=== PATIENT | female | born 1950 | race American Indian/Alaskan Native ===

== ENCOUNTER 2019-05-13 11:11 | Outpatient (CLI) | payer MEDICARE ==
--- NOTE | 2019-05-13 16:07 | Mammography Report ---
DIGITAL SCREENING MAMMOGRAM WITH CAD, 05/13/2019 INDICATION: Routine screening mammography. TECHNIQUE: Digital bilateral 2D mammography was obtained in the craniocaudal and mediolateral obliq ue projections. This examination was interpreted with the benefit of Computer-Aided Detection analysi s. COMPARISON: 11/27/2012 FINDINGS: Breast Density: The breasts are almost entirely fatty. Right retroareolar duct ectasia has increased compared to the previous exam and requires additional i maging. No architectural distortion or suspicious calcifications of the right breast. There is no maegan dence of dominant mass, suspicious calcifications or architectural distortion in the left breast. IMPRESSION: Right retroareolar duct ectasia requiring additional imaging. Recommend recall for bilate ral retroareolar spot magnification views and targeted right breast ultrasound. Follow up recommendation: Special View: Mag Category 0: Incomplete. Needs additional imaging evaluation and/or prior mammograms for comparison. A "normal" or negative report should not discourage follow up or biopsy of a clinically significant f inding. A written summary of these findings will be mailed to the patient. The patient will be entered into a mammography reporting system which will generate a reminder letter for the patient's next appointmen t at the appropriate interval. The [employer] recommends yearly mammograms starting at age 40 and continuing as l sincere as a woman is in good health. Breast MRI is recommended for women with an approximate 20-25% or greater lifetime risk of breast cancer, including women with a strong family history of breast or ova singh cancer or who have been treated for Hodgkin's disease. Signer Name: Primo Byrne MD Signed: 05/13/2019 4:02 PM Workstation Name: [id number]
== END 2019-05-13 11:12 | disposition home or self-care (01) ==
LOC: SPVWC 11:11
PROVIDERS: ATTEND Internal Medicine
DX: Z12.31 Encounter for screening mammogram for malignant neoplasm of breast (principal); N60.41 Mammary duct ectasia of right breast
CPT/HCPCS: 77067

== ENCOUNTER 2019-07-01 10:53 | Outpatient (CLI) | payer MEDICARE ==
--- NOTE | 2019-07-02 08:42 | Ultrasound Report ---
BILATERAL DIGITAL DIAGNOSTIC MAMMOGRAM WITH CAD 07/01/2019 BILATERAL LIMITED BREAST ULTRASOUND INDICATION: Recalled to evaluate asymmetric right retroareolar ducts. ABNORMAL MAMMOGRAM TECHNIQUE: Digital bilateral mammographic imaging was performed. Magnification views were obtained. Limited ultrasound was performed. This examination was interpreted with the benefit of Computer-Aided Detection (CAD) analysis. COMPARISON: 05/13/2019 FINDINGS: Breast Density: The breasts are almost entirely fatty. MAMMOGRAPHIC FINDINGS: Bilateral nipple magnification views were performed and demonstrate bilateral retroareolar duct ectasia, greater on the right than the left. The right-sided ducts are also more de nse. ULTRASOUND FINDINGS: Targeted ultrasound evaluation was performed of the area of interest. Bilatera l retroareolar breast ultrasound was performed. Numerous dilated right retroareolar ducts with the largest ducts measuring approximately 6 mm. Severa l right retroareolar intraductal masses. The most prominent is at 12:00. It is irregular and measures 1.9 x 1.3 x 0.6 cm. Intraductal mass at 1:00 measures 4 x 3 x 2 mm. Several smaller right intraducta l masses are identified. Moderate left retroareolar duct ectasia with the largest duct measuring 4 mm. Intraductal masses on t he left at 9:00 measure 4 x 3 x 3 mm, 4 x 2 x 3 mm. One of these is 4 cm from the nipple. A intraduct al mass at 12:00 retroareolar measures 5 x 2 x 4 mm. IMPRESSION: Bilateral retroareolar duct ectasia, right greater than left. Multiple bilateral intraduc ravinder masses with the largest on the right at 12:00 measuring 19 mm. 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 Recommend bilateral ultrasound-guided vacuum-assisted needle biopsies with biopsy of the 2 largest in traductal masses on each side. MRI would be helpful for better assessment of the size and number of m asses and for guiding biopsies. Follow up recommendation: Biopsy BI-RADS Category 4: Suspicious for Malignancy. A "normal" or negative report should not discourage follow up or biopsy of a clinically significant f inding. A written summary of these findings will be mailed to the patient. The patient will be entered into a mammography reporting system which will generate a reminder letter for the patient's next appointmen t at the appropriate interval. According to the [employer], yearly mammograms are recommended starting at age 40 and continuing as long as a woman is in good health. Breast MRI is recommended for women with an johnny roximately 20-25% or greater lifetime risk of breast cancer, including women with a strong family his tory of breast or ovarian cancer and women who have been treated for Hodgkin's disease. Signer Name: Primo Byrne MD Signed: 07/02/2019 8:38 AM Workstation Name: [id number]
== END 2019-07-01 10:54 | disposition home or self-care (01) ==
LOC: SPVWC 10:53
PROVIDERS: ATTEND Surgery
DX: N60.42 Mammary duct ectasia of left breast (principal); N60.41 Mammary duct ectasia of right breast; R92.2 Inconclusive mammogram; N64.89 Other specified disorders of breast
CPT/HCPCS: 77066

== ENCOUNTER 2019-07-15 09:34 | Outpatient (CLI) | payer MEDICARE ==
--- NOTE | 2019-07-15 11:21 | Mammography Report ---
DIGITAL DIAGNOSTIC MAMMOGRAM WITH CAD, 07/15/2019 INDICATION: S/P ultrasound biopsy clip placement TECHNIQUE: Digital right mammographic imaging was performed. This examination was interpreted with the benefit of Computer-aided Detection analysis. COMPARISON: 07/01/2019 FINDINGS: Breast Density: The breasts are almost entirely fatty. A retroareolar biopsy clip at 12:00 correlates with the site of today's biopsy. There is a 10 x 8 cm postbiopsy hematoma adjacent to the clip. IMPRESSION: Concordant clip placement. A 10 cm postbiopsy hematoma. Follow up recommendation: No recall. Post biopsy imaging. A "normal" or negative report should not discourage follow up or biopsy of a clinically significant f inding. A written summary of these findings will be mailed to the patient. The patient will be entered into a mammography reporting system which will generate a reminder letter for the patient's next appointmen t at the appropriate interval. According to the [employer], yearly mammograms are recommended starting at age 40 and continuing as long as a woman is in good health. Breast MRI is recommended for women with an johnny roximately 20-25% or greater lifetime risk of breast cancer, including women with a strong family his tory of breast or ovarian cancer and women who have been treated for Hodgkin's disease. Signer Name: Primo Byrne MD Signed: 07/15/2019 11:16 AM Workstation Name: [id number]
--- NOTE | 2019-07-15 11:28 | Ultrasound Report ---
ULTRASOUND-GUIDED VACUUM-ASSISTED NEEDLE CORE BIOPSY RIGHT BREAST WITH CLIP PLACEMENT CLINICAL: Retroareolar duct ectasia with multiple intraductal masses. FINDINGS: The procedure was explained to the patient and informed consent was obtained. Ultrasound demonstrated the previously identified duct ectasia with a dominant 1.9 cm intraductal mas s at 12:00. I marked the breast with a felt tip marker and a timeout was called. The skin was prepped with Chloro -Prep and anesthetized with 1% lidocaine. Vacuum-assisted needle core biopsy was performed at 12:00 through a small dermatotomy using ultrasoun d guidance, 2% lidocaine with epinephrine for deep anesthesia and a 10-gauge Mammotome Elite biopsy d evice. Multiple cores were obtained and placed in formalin. A clip was deployed at the biopsy site. A moderate size hematoma developed at the biopsy site but hemostasis was achieved with pressure to the site. A sterile dressing was applied and an Rahat wrap bandage was also applied. The patient tolerated the procedure well and there were no apparent complications other than hematoma at the site. A post procedure mammogram demonstrated concordant clip deployment and a 10 cm postbiop sy hematoma at the site. She left the department in good condition and was given instructions for wou nd care and follow-up. IMPRESSION: Successful ultrasound guided needle core biopsy with clip placement right breast.The mark ent was told to remove the Rahat wrap on the next day and to call the office if she has concern for fur ther bleeding. She was also instructed to call Dr. Rodriguez if she cannot reach someone in our office. Signer Name: Primo Byrne MD Signed: 07/15/2019 11:23 AM Workstation Name: [id number]
== END 2019-07-15 09:35 | disposition home or self-care (01) ==
LOC: SPVWC 09:34
PROVIDERS: ATTEND Surgery
DX: N63.41 Unspecified lump in right breast, subareolar (principal); N60.41 Mammary duct ectasia of right breast; N63.42 Unspecified lump in left breast, subareolar; N64.89 Other specified disorders of breast; Z80.0 Family history of malignant neoplasm of digestive organs; Z80.41 Family history of malignant neoplasm of ovary; Z79.899 Other long term (current) drug therapy
CPT/HCPCS: 88305

== ENCOUNTER 2019-09-23 08:27 | Outpatient (CLI) | payer MEDICARE ==
--- NOTE | 2019-09-23 10:10 | Ultrasound Report ---
LIMITED LEFT BREAST ULTRASOUND INDICATION: She presented for biopsy of intraductal lesions at 9:00 and 12:00. She reports no left nipple dischar ge and no history of left nipple discharge. She had ultrasound guided vacuum assisted biopsy of a 1.8 cm right retroareolar benign intraductal papilloma on 07/15/2019. COMPARISON: 07/01/2019 FINDINGS: Ultrasound of the left breast demonstrated moderate duct ectasia retroareolar at 12:00 and 9:00. Prev iously described intraductal lesions are less prominent. I examined the patient myself and determined that biopsy at this time would be technically challenging and since intraductal lesions appear less prominent decided to opt for ultrasound follow-up. IMPRESSION: Probably benign duct ectasia and probably benign intraductal lesions at 9:00 and 12:00. R ecommend 6 month follow-up targeted left breast ultrasound. BI-RADS Category 3: Probably benign Signer Name: Primo Byrne MD Signed: 09/23/2019 10:06 AM Workstation Name: [id number]
== END 2019-09-23 08:28 | disposition home or self-care (01) ==
LOC: SPVWC 08:27
PROVIDERS: ATTEND Surgery
DX: N63.42 Unspecified lump in left breast, subareolar (principal)

== ENCOUNTER 2019-11-11 14:01 | Outpatient (CLI) | payer MEDICARE ==
--- NOTE | 2019-11-11 16:52 | Magnetic Resonance Report ---
BILATERAL BREAST MRI WITH AND WITHOUT CONTRAST CLINICAL INFORMATION/INDICATION: Left breast lump. Benign right breast mass. Previous abnormal mammog tracee. History of ductal ectasia. TECHNICAL: Coronal STIR, axial T1 and T2-weighted fat sat images were obtained precontrast. 19 cc Mul tiHance contrast was injected intravenously and serial axial T1 weighted images with fat saturation w ere obtained. 3-D MIP projections, kinetic analysis and subtraction imaging was utilized to evaluate. A dedicated 8-channel breast coil was used for image acquisition. COMPARISON: Left breast ultrasound from 09/23/2019. Diagnostic bilateral mammogram from 07/01/2019. Scre ening mammogram from 05/13/2019. FINDINGS: Right breast: Scattered fibroglandular tissue is noted with mild background enhancement. Ductal ectas ia is again noted along the anterior depth of the breast, mainly lateral to the nipple in the 3-5:00 position. Multiple enhancing nodules along these ectatic ducts likely correlate with the previously d escribed intraductal lesions. A sales representative groceries lesion located in the 1:00 position measures 1.2 x 1.0 cm on image 87 of series 6, 3.3 cm from the nipple, 16 cm from the chest wall and 1.4 cm from the ne arest skin surface located laterally. No other mass or suspicious enhancement is seen. No lymphadenop athy. Left breast: Scattered fibroglandular tissue is noted with mild background enhancement. Ductal ectasi a is again seen throughout the anterior depth of the left breast that is less extensive compared to t he right breast and correlates with the findings of the prior studies. Punctate areas of indeterminat e enhancement scattered along the anterior depth of the left breast are nonspecific and could represe nt some of the previously described subcentimeter intraductal lesions. These areas of enhancement are not as notable as those seen in the right breast. No other mass or other area of suspicious enhancem ent is seen. No lymphadenopathy. Additional findings: None. IMPRESSION: 1. Persistent bilateral ductal ectasia, right greater than left, with enhancing intraductal lesions o n the right as described above and possible small enhancing intraductal lesions on the left. Reevalua tion of the right breast by ultrasound is recommended to determine if there is a site amenable to bio psy with ultrasound guidance. If no suitable site is identified, MR guided biopsy of the right breast is recommended. 2. Probably benign ductal ectasia in the left breast. A follow-up MRI of the breasts in 6 months is recommended for reevaluation. Follow up recommendation:Biopsy BI-RADS Category 4: Suspicious for Malignancy. Signer Name: Lincoln Barnard MD Signed: 11/11/2019 4:48 PM Workstation Name: [id number]
== END 2019-11-11 14:02 | disposition home or self-care (01) ==
LOC: SPVIMAG 14:01
PROVIDERS: ATTEND Surgery
DX: N60.42 Mammary duct ectasia of left breast (principal); N60.41 Mammary duct ectasia of right breast; N63.25 Unspecified lump in the left breast, overlapping quadrants; D24.1 Benign neoplasm of right breast
CPT/HCPCS: A9577; C8908; 77049